=== PATIENT | female | born 1995 | race Caucasian/White ===

== ENCOUNTER → 2022-05-18 07:40 | Outpatient (CLI) | payer OTHER, SELFPAY ==
--- NOTE | 2022-05-18 07:43 | DI.US.S_ITS ---
PROCEDURE: US PELVIC COMPLETE INDICATIONS: Polycystic ovaries TECHNIQUE: Real-time scanning was performed of the pelvic organs, with image documentation. Additional endovaginal scanning was necessary due to incomplete visualization of the adnexal and endometrial structures by transabdominal scanning. COMPARISON: None. FINDINGS: Uterus: Uterus is anteverted and normal in size at 8.8 x 5.6 x 3.4 cm. The myometrium is heterogeneous. The endometrium measures 9 mm combined thickness. There is a complex irregular focus within the left endometrium, that measures 6 x 9 x 5 mm. Mildly increased surrounding vascularity can be seen. The IUD is abnormally low lying within the lower uterine segment is not seen within the fundal endometrium of the uterus. Ovaries: The ovaries are not seen transvaginally, secondary to body habitus and the superior location of the ovaries. The right ovary measures 3.9 x 2.2 x 1.9 cm, with a calculated ovarian volume of 8.5 cc. The left ovary measures 4 x 2.2 x 1.9 cm, with a calculated ovarian volume of 9.5 cc. The ovaries have a normal sonographic appearance. Less than 12 follicles can be seen in each ovary. No adnexal masses are seen. Other: No pathologic free abdominal or pelvic fluid. This study is limited by body habitus bowel gas. IMPRESSION: There is a 9 mm abnormal focus seen within the left endometrium with increased surrounding vascularity. Differential diagnosis includes a endometrial polyp. Abnormally low lying IUD, which is seen within the lower uterine segment. Less than 12 follicles can be seen involving each ovary. However, the ovaries are not well seen transvaginally. We strive to produce accurate, complete, and clear reports of imaging services. To assist us in improving patient care, this report was composed using standard report templates and voice recognition software. Therefore, it may contain abnormal punctuation, insertions and/or omissions. Occasional wrong-word or sound-alike substitutions may occur. Though we review the report and make efforts to correct it, we do recommend that the report be read carefully in proper context to recognize any text inaccuracies. Dictated by: Terell Small M.D. on 05/18/2022 at 9:54 Approved by: Terell Small M.D. on 05/18/2022 at 9:57
== END ==
PROVIDERS: PCP Physician Assistant; Referring Provider Obstetrics & Gynecology; Visit Provider Obstetrics & Gynecology
DX: E28.2 Polycystic ovarian syndrome (principal); T83.32XA Displacement of intrauterine contraceptive device, initial encounter
CPT/HCPCS: 76830; 76856

== ENCOUNTER → 2022-05-20 13:47 | Outpatient (CLI) | payer OTHER, SELFPAY ==
[2022-05-20 14:48] LABS: Hemoglobin A1C% w Est Avg Glu 5.1 % (4.0-6.0)
[2022-05-20 15:01] LABS: Glucose 78 mg/dL (70-100)
[2022-05-20 15:22] LABS: Follicle Stimulating Hormone 4.98 mIU/mL; Luteinizing Hormone 5.66 mIU/mL
[2022-05-20 15:38] LABS: Free T4, Direct Thyroxine 1.21 ng/dL (0.78-2.19)
== END ==
PROVIDERS: PCP Physician Assistant; Referring Provider Obstetrics & Gynecology; Visit Provider Obstetrics & Gynecology
DX: E28.2 Polycystic ovarian syndrome (principal)
CPT/HCPCS: 36415; 82947; 83001; 83002; 83036; 83525; 84439

== ENCOUNTER → 2022-07-28 14:12 | Outpatient (CLI) | payer OTHER, SELFPAY ==
[2022-07-28 18:24] LABS: COVID19 -Nasal RAPID Negative (Negative)
== END ==
PROVIDERS: PCP Physician Assistant; Visit Provider Obstetrics & Gynecology
DX: Z20.822 Contact with and (suspected) exposure to COVID-19 (principal); Z01.812 Encounter for preprocedural laboratory examination
CPT/HCPCS: 87635

== ENCOUNTER 2022-07-29 10:14 | Day surgery (SDC) | payer OTHER, SELFPAY ==
[2022-07-27 07:48] VITALS: BMI 48.3
--- NOTE | 2022-07-29 | PATH_ITS ---
[facility] Accession Number: [id number] . 01 Material submitted: . PART A: endometrium - ENDOMETRIAL POLYPS PART B: endometrium - ENDOMETRIAL CURETTINGS . 01 Diagnosis: A. Endometrium, Biopsy: Inactive endometrium with progestin effect and focal changes suggestive of a polyp. Negative for atypical hyperplasia and malignancy. Negative for neoplasia. . B. Endometrium, Curettage: Predominantly blood. Scant inactive endometrium with progestin effect. Negative for neoplasia. MRV 08/03/2022 1750 Local . 01 Electronically signed: . Stephanie Birmingham MD, Pathologist NPI- [id number] . 01 Gross description: . Part A: ENDOMETRIAL POLYPS: Received in formalin are minute fragments of mucoid and hemorrhagic material measuring 1.5 x 1.5 x 0.1 cm in aggregate. Submitted in toto in 1 cassette. Part B: ENDOMETRIAL CURETTINGS: Received in formalin are minute fragments of mucoid and hemorrhagic material measuring 2.0 x 1.8 x 0.1 cm in aggregate. Submitted in toto in 1 cassette. /CPE 07/30/2022 0540 Local . 01 Pathologist provided ICD-10: N84.0, Z30.432 . 01 CPT . 963701, 909510 Performed at: 01 [facility] [address], [place], [place] [id number] MD Lewis Jang MD Phone: [phone]
[2022-07-29 10:31] VITALS: BP 149/101; PULSE 103; RESP 16; TEMP 36.5; O2SAT 98; BMI 47.8
[2022-07-29] MEDS: LACTATED RINGERS 1,000 ML 100 ML IV (10:41)
--- NOTE | 2022-07-29 11:37 | PM.HP.1 ---
History of Present Illness History of Present Illness Date Patient Seen: 07/29/22 Time Patient Seen: 11:38 Chief complaint: Hysteroscopy D&C/IUD Insertion/Removal/IUD Inserti Narrative: Patient is a 26 year old 1 para 0 who presents for a D&C hysteroscopy, removal and replacement of Mirena IUD Patient may have an endometrial polyp. The IUD is sitting in the lower uterine segment. Patient History Medical History (Updated 07/29/22 @ 11:40 by Wendie Lenz MD) Acne (~2005) Irregular menstrual cycle (~2005) Ovarian cyst (~2005) Painful menstrual periods (~2005) Surgical History (Updated 04/19/22 @ 20:18 by Marcelina Murillo) Anesthesia History of knee surgery (~03/2020) Family & Social History Family History (Updated 04/19/22 @ 20:20 by Marcelina Murillo) Father Hypertension Grandfather Cancer Grandmother Cancer Grandfather Cancer Social History: household members spouse Tobacco & Substance use: Smoking Status Former smoker alcohol intake current alcohol intake frequency holiday/special occasion Substance Use Type does not use Meds Home Medications and Allergies Home Medications Medication Instructions Recorded Confirmed Type spironolactone 100 mg tablet 100 mg PO BID #60 tabs 04/22/22 07/29/22 Rx levonorgestrel 20 mcg/24 hours (8 intrauterine 06/03/22 06/03/22 History yrs) 52 mg intrauterine device (Mirena) metformin 500 mg tablet 500 mg PO BID #60 tabs 06/17/22 07/29/22 Rx Allergies Allergy/AdvReac Type Severity Reaction Status Date / Time Penicillins AdvReac Mild hives, rash Uncoded 07/29/22 10:26 Exam Vital Signs (past 8 hours): - 07/29/22 10:31 Temperature 97.7 F Pulse Rate 103 H Respiratory Rate 16 Blood Pressure 149/101 H Pulse Oximetry 98 Oxygen Delivery Method Room Air Oxygen Delivery Method Room Air Narrative Exam Narrative: HEENT: No thyromegaly, no anterior cervical or supraclavicular lymphadenopathy. Lungs:Clear to auscultation bilaterally, no wheezes. Cardiovascular: Regular rate and rhythm, no murmurs, rubs, or gallops. Abdomen: No scars. No hepatosplenomegaly. No masses palpable. External genitalia: Normal Vagina: Normal Cervix: Normal. Nulliparous Bimanual exam: 7 Week size anteverted uterus. Mobile. No adnexal masses or tenderness. Extremities: No edema Assessment & Plan Assessment & Plan narrative: Assessment: 26-year-old 1 para 0 with Mirena IUD in the lower uterine segment Possible endometrial polyp Plan: Removal and replacement of Mirena IUD Possible polypectomy D&C hysteroscopy The risks, benefits, and alternatives to the procedure were explained to the patient. The risks including bleeding, infection, and uterine perforation. She understands these risks and agrees to proceed. A full par Q was held and consent form was signed. COVID-19 COVID-19 status: Negative Result date/Date tested (Pos, Neg/Pending): 07/28/22 Time Spent With Patient Time with patient: less than 30 minutes Critical Care time: I spent a total of [] minutes of critical care time on this patient's care today; this time is exclusive of procedural time.
--- NOTE | 2022-07-29 11:42 | PM.PREOP ---
Pre-operative Note COVID-19 COVID-19 status: Negative Result date/Date tested (Pos, Neg/Pending): 07/28/22 Criteria for continued procedure: Non-surgical alternatives not available or appropriate per current SOC Interval Note History & Physical reviewed/Exam performed by Physician: Yes Changes to H&P: No H&P completed within 30 days and has changed as indicated here:: 07/29/22
--- NOTE | 2022-07-29 11:51 | SUR.OPER ---
Lithotomy on padded OR bed, head on pillow, arms secured on padded arm boards at <90 degrees abduction. Legs secured in padded yellow fins stirrups.
--- NOTE | 2022-07-29 12:28 | PM.GYNOP.1 ---
Operative Date/Time/Diagnoses Date of procedure: 07/29/22 Time of procedure: 12:29 Pre-op diagnosis: Possible endometrial polyp IUD in the lower uterine segment Post-op diagnosis: same Procedure & Clinicians Procedure: Procedures Operation Date: 07/29/22 11:45 Actual Procedure Side Surgeon p D&C Hysteroscopy/Polypectomy Not Applicable Wendie Lenz MD s Removal of IUD/ insertion of Mirena IUD Not Applicable Wendie Lenz MD Indications: Endometrial polyps by ultrasound Mirena IUD in the lower uterine segment Surgeon: Wendie Lenz Anesthesia Type: General (LMA) Operative Notes Findings: 7 week size anteverted uterus Polypoid tissue on the right midbody of the uterus Closure Type: not applicable Specimen(s): endometrial curettings and endometrial polyp Estimated blood loss (mL): 10 Blood products transfused: none Procedure in detail: After informed consent was obtained, the patient was taken to the operating room where she was placed in the dorsal supine position. LMA general anesthesia was performed. She was then placed in the dorsolithotomy position and prepped and draped in the usual sterile fashion. A time out was performed. A bivalve speculum was placed into the vagina. The Mirena IUD strings were visualized in the cervical os. They were grasped and the IUD was removed without difficulty. The cervical os was dilated to the #8 Hegar dilator. The hysteroscope passed easily into the endometrial cavity. Both ostia were observed. Polyps were observed on the right side of the uterus. The hysteroscope was removed. The os was further dilated to the #9 Hegar dilator. The resectoscope passed into the endometrial cavity. With settings at 80 cut and 60 cautery, the polyps were resected. The hysterocope was removed from the uterus. Sharp curretage yielded a moderate amount of tissue. A new Mirena IUD was placed without difficulty. The strings were cute to 1.5cm. The singe tooth tenaculum was removed from the anterior lip of the cervix. The bivalve speculum was removed from the vagina. Sponge, lap and instrument counts were correct x 2. The patient tolerated the procedure well and was taken to PACU in stable condition. Complications: none Post-operative Condition: stable Disposition: PACU Plan for aftercare: Home after recovery
[2022-07-29 12:35] VITALS: BP 139/94; PULSE 110; RESP 20; TEMP 36.2; O2SAT 97
[2022-07-29 12:38] VITALS: BP 147/103; PULSE 101; RESP 13; TEMP 36.6; O2SAT 98
[2022-07-29 12:42] VITALS: BP 148/98; PULSE 105; RESP 12; TEMP 36.1; O2SAT 95
[2022-07-29] MEDS: KETOROLAC 30 MG/ML VIAL IV (12:55)
[2022-07-29] MEDS: ACETAMINOPHEN 325 MG TABLET PO (12:55)
[2022-07-29 13:00] VITALS: BP 156/104; PULSE 98; RESP 20; TEMP 36.2; O2SAT 100
[2022-07-29 13:34] VITALS: BP 117/81; PULSE 99; RESP 18; TEMP 36.4; O2SAT 98
== END 2022-07-29 13:46 | disposition home or self-care (01) ==
PROVIDERS: PCP Physician Assistant; Referring Provider Obstetrics & Gynecology; Visit Provider Obstetrics & Gynecology
PROC: 0UDB8ZZ Extraction of Endometrium, Via Natural or Artificial Opening Endoscopic (ICD-10-PCS; CPT 58558; principal; 2022-07-29 11:45)
PROC: (CPT 58558; 2022-07-29 11:45)
DX: R93.89 Abnormal findings on diagnostic imaging of other specified body structures (principal); Z30.433 Encounter for removal and reinsertion of intrauterine contraceptive device
CPT/HCPCS: 58558; 58301; 58300; 81025; J1885; J2405; J2704; J3010; J7298

== ENCOUNTER → 2023-02-07 10:45 | Outpatient (CLI) | payer OTHER, SELFPAY ==
[2023-02-07 13:02] LABS: Iron 49 ug/dL (37-170)
[2023-02-07 13:10] LABS: Free T4, Direct Thyroxine 1.01 ng/dL (0.78-2.19)
[2023-02-07 13:23] LABS: Thyroid Stimulating Hormone 0.636 uIU/mL (0.47-4.68)
[2023-02-07 13:26] LABS: Ferritin 50 ng/mL (6-137)
[2023-02-11 08:06] LABS: Percent Free Testosterone 4.45 % (0.50-2.80); Testosterone Free 1.62 ng/dL (0.10-0.85); Testosterone Total 36.4 ng/dL (10.0-55.0)
== END ==
PROVIDERS: PCP Physician Assistant; Referring Provider Obstetrics & Gynecology; Visit Provider Obstetrics & Gynecology
DX: L65.9 Nonscarring hair loss, unspecified (principal)
CPT/HCPCS: 36415; 82728; 83540; 84402; 84403; 84439; 84443